=== PATIENT | female | born 1985 | race African-American/Black ===

== ENCOUNTER 2020-10-17 06:15 | Inpatient (IN) | payer BC, SELFPAY ==
[2020-10-13 11:04] LABS: BASOPHILS % (AUTO) 0.3 % (0.0-2.0); EOSINOPHILS # (AUTO) 0.2 K/uL (0.0-0.4); EOSINOPHILS % (AUTO) 3.9 % (0.0-4.0); HEMATOCRIT 36.1 % (36-48); HEMOGLOBIN 11.7 g/dL (12.0-16.0); LYMPHOCYTES # (AUTO) 1.2 K/uL (1.0-5.5); LYMPHOCYTES % (AUTO) 25.9 % (20.5-51.5); MEAN CORPUSCULAR HEMOGLOBIN 28 pg (27-31); MEAN CORPUSCULAR HGB CONC 32 % (32-36); MEAN CORPUSCULAR VOLUME 88 fL (79.0-98.0); MONOCYTES # (AUTO) 0.3 K/uL (0.0-1.0); MONOCYTES % (AUTO) 5.8 % (1.7-9.3); NEUTROPHILS % (AUTO) 64.1 % (40.0-70.0); PLATELET COUNT (AUTO) 276 K/uL (130-430); WHITE BLOOD COUNT (AUTO) 4.7 K/uL (4.8-10.8)
[2020-10-13 11:13] LABS: BILIRUBIN,URINE NEGATIVE (NEGATIVE); BLOOD, URINE NEGATIVE (NEGATIVE); CLARITY/URINE CLEAR (CLEAR); COLOR,URINE YELLOW (YELLOW); GLUCOSE,URINE NEGATIVE (NEGATIVE); KETONES,URINE NEGATIVE (NEGATIVE); LEUKOCYTE ESTERASE ,URINE NEGATIVE (NEGATIVE); NITRITE, URINE NEGATIVE (NEGATIVE); PROTEIN URINE NEGATIVE (NEGATIVE); UROBILINOGEN,URINE 0.2 (0.2-1.0)
[2020-10-13 11:15] LABS: ALBUMIN 3.9 g/dL (3.4-4.8); CALCIUM 8.9 mg/dL (8.4-11.0); CREATININE 0.79 mg/dL (0.55-1.30); POTASSIUM 4.4 mmol/L (3.5-5.1); TOTAL BILIRUBIN 0.2 mg/dL (0.0-1.0)
[2020-10-13 11:31] LABS: INR 0.9 (0.8-1.2); PROTHROMBIN TIME 9.4 SECS (9.5-12.5)
[~2020-10-17] VITALS: Ht 165.1 cm; Wt 70.3 kg
[2020-10-17 06:45] LABS: HCG,QUAL RESULT NEGATIVE (NEGATIVE)
[2020-10-17] MEDS ORDERED: CEFAZOLIN 2 GM IVPB PREMIX 50 ML IV ONE (07:00)
[2020-10-17] MEDS ORDERED: ONDANSETRON HCL 4 MG/2 ML VIAL IVP ONE (07:30)
[2020-10-17] MEDS ORDERED: MIDAZOLAM HCL 5 MG/5 ML VIAL IVP ONE (07:30)
[2020-10-17] MEDS ORDERED: MORPHINE SULFATE 10MG/10ML PF AMP EP ONE (07:30)
[2020-10-17] MEDS ORDERED: ROCURONIUM BROMIDE 10 MG/ML (ZEMURON) IV ONE (07:30)
[2020-10-17] MEDS ORDERED: OXYTOCIN 10 UNIT/ML VIAL IV ONE (07:30)
[2020-10-17] MEDS ORDERED: fentaNYL CITRATE/PF 100 MCG/2 ML AMP IVP ONE (07:30)
[2020-10-17] MEDS ORDERED: SEVOFLURANE 15 MIN GAS INH ONE (07:30)
[2020-10-17] MEDS ORDERED: NS IRRIG SOLN 1000 ML IR ONE (07:30)
[2020-10-17] MEDS ORDERED: PROPOFOL 200MG/ 20ML VIAL (DIPRIVAN) IV ONE (07:30)
[2020-10-17] MEDS ORDERED: NS 100 ML BAG IV ONE (07:30)
[2020-10-17] MEDS ORDERED: BUPIVACAINE /PF 0.75% 10 ML VIAL INJ ONE (07:30)
[2020-10-17] MEDS ORDERED: DIPHENHYDRAMINE INJ 50 MG/ML VIAL IVP PRN (09:00)
[2020-10-17] MEDS ORDERED: KETOROLAC TROMETHAMINE 60 MG/2 ML VIAL IM PRN (09:00)
[2020-10-17] MEDS ORDERED: MORPHINE SULFATE 10MG/10ML PF AMP SP SCH (09:00)
[2020-10-17] MEDS ORDERED: ONDANSETRON HCL 4 MG/2 ML VIAL IVP PRN (09:00)
[2020-10-17] MEDS ORDERED: fentaNYL CITRATE/PF 100 MCG/2 ML AMP IVP PRN ×2 (09:00)
[2020-10-17] MEDS ORDERED: NALOXONE HCL 0.4 MG/ML AMP (NARCAN) IVP PRN ×2 (09:00)
[2020-10-17] MEDS ORDERED: NALBUPHINE HCL 10 MG/ML AMP IVP PRN (09:00)
[2020-10-17] MEDS ORDERED: ZOLPIDEM TARTRATE 5 MG TABLET PO PRN ×2 (10:45)
[2020-10-17] MEDS ORDERED: CEFAZOLIN 1 GM IVPB PREMIX 50 ML IV SCH (10:45)
[2020-10-17] MEDS ORDERED: D5LR 1,000 ML IV SCH (10:45)
--- NOTE | 2020-10-17 11:00 | NUR ---
ADMISSION: RECEIVED PT POST SURGERY, A/A/OX4, DX: S/P LAPAROTOMY W/MYOMECTOMY, AFEBRILE, VSS, NO S/S OF DISTRESS, BREATH SOUNDS ARE CLEAR, BREATHING UNLABORED, SATURATING 96% ORA, IV SITE INTACT, PATENT, NO REDNESS OR SWELLING, ORIENTED TO UNIT, CALL LIGHT PLACED WITHIN REACH, WILL CONT' TO MONITOR AND ASSESS.
[2020-10-17] MEDS: CEFAZOLIN 1 GM IVPB PREMIX 50 ML IV SCH ×2 (13:53→20:41)
[2020-10-17] MEDS: ONDANSETRON HCL 4 MG/2 ML VIAL IVP PRN ×2 (13:54→18:46)
[2020-10-17] MEDS: D5LR 1,000 ML IV SCH ×2 (14:00→23:09)
--- NOTE | 2020-10-17 18:00 | NUR ---
CLOSING NOTES: PT REMAINS STABLE, NO C/O PAIN, NO DISTRESS NOTED, TOLERATING WELL, CALL LIGHT WITHIN REACH, WILL CONT' TO MONITOR AND ASSESS.
[2020-10-17 18:06] VITALS: BP_SYST 108
--- NOTE | 2020-10-17 19:10 | NUR ---
REPORT RECEIVED FROM DAY SHIFT NURSE. LOWER ABD DRESSING DRY AND INTACT. NICHOLS CATH TO GRAVITY DRAINAGE NOTED WITH YELLOWISH URINE. LOWER ABDOMINAL DRESSING DRY AND INTACT. IVF IS INFUSING WELL IN RH. Addendum: 10/17/20 at 2306 by Claudia Simental RN PT INSTRUCTED TO USE IS 10X Q 1HR WA AND PT VERBALIZED UNDERSTANDING. PT'S IS USAGE IS UP TO 1000ML.
[2020-10-17 20:00] VITALS: BP_SYST 111
--- NOTE | 2020-10-17 22:15 | NUR ---
PT AMBULATED IN THE HALLWAY WITH ONE ASSIST. GAIT SLOW, BUT STEADY AND WELL TOLERATED BY PT. NO C/O DIZZINESS, PAIN OR NAUSEA.
[2020-10-18 00:34] VITALS: BP_SYST 105
[2020-10-18] MEDS: D5LR 1,000 ML IV SCH ×4 (02:45→20:20)
[2020-10-18] MEDS ORDERED: KETOROLAC TROMETHAMINE 30 MG VIAL ONE (03:13)
--- NOTE | 2020-10-18 03:18 | NUR ---
PT C/O 7/10 LOWER ABDOMINAL INCISIONAL PAIN. TORADOL 60MG GIVEN IM.
--- NOTE | 2020-10-18 06:15 | NUR ---
NICHOLS CATHETER REMOVED PER MD'S ORDER.
[2020-10-18 06:53] LABS: BASOPHILS % (AUTO) 0.1 % (0.0-2.0); EOSINOPHILS # (AUTO) 0.1 K/uL (0.0-0.4); EOSINOPHILS % (AUTO) 0.7 % (0.0-4.0); HEMATOCRIT 23.3 % (36-48); HEMOGLOBIN 7.8 g/dL (12.0-16.0); LYMPHOCYTES # (AUTO) 1.4 K/uL (1.0-5.5); LYMPHOCYTES % (AUTO) 13.1 % (20.5-51.5); MEAN CORPUSCULAR HEMOGLOBIN 29 pg (27-31); MEAN CORPUSCULAR HGB CONC 33 % (32-36); MEAN CORPUSCULAR VOLUME 87 fL (79.0-98.0); MONOCYTES # (AUTO) 0.8 K/uL (0.0-1.0); MONOCYTES % (AUTO) 7.4 % (1.7-9.3); NEUTROPHILS # (AUTO) 8.3 K/uL (1.8-7.7); NEUTROPHILS % (AUTO) 78.7 % (40.0-70.0); PLATELET COUNT (AUTO) 220 K/uL (130-430); RED BLOOD CELL COUNT(AUTO) 2.69 MIL/uL (4.2-6.2); RED CELL DISTRIBUTION WIDTH 14.5 % (9.0-15.0); WHITE BLOOD COUNT (AUTO) 10.6 K/uL (4.8-10.8)
--- NOTE | 2020-10-18 08:00 | NUR ---
NOTES SEEN BY KASSY, DIET TO CLEAR LIQUID TOLERATED WELL. WITH LOW HEMOGLOBIN AND HEMATOCRIT TO TRANSFUSE ONE UNIT AUTOLOGOUS BLOOD. ABLE TO WALK WITHOUT ASSISTANCE. USING INCENTIVE SPIROMETER. REMOVED SCD SO PATIENT ABLE TO WALK AND INDEPENDENT DURING THE DAY.
[2020-10-18 08:45] VITALS: BP_SYST 101
--- NOTE | 2020-10-18 09:47 | NUR ---
BT INITIATION: Consent signed per PATIENT agreeing to administration of blood. Blood has been type and crossmatched. Blood sent from blood bank. Information on unit of blood checked against patient wristband at bedside by two nurses. All information matches. Patient or responsible republican informed of potential complications associated with blood transfusion. Informed of possible transfusion reaction symptoms. Aware of need to notify nurse at once of itching, shortness of breath, flushing, feeling of impending doom, or other symptoms not previously present. Vital signs taken within 5 minutes prior to initiation of transfusion. RN will remain with patient for first 15 minutes of transfusion at which time vital signs will be re-assessed. AUTOLOGOUS BLOOD TRANSFUSE TO PATIENT.
[2020-10-18] MEDS: HYDROcodone/ACETAMIN 5-325 MG TAB (NORCO/ VICODIN) PO PRN ×4 (09:54→22:56)
--- NOTE | 2020-10-18 10:00 | NUR ---
BLOOD NO REACTIONS POST 15 MINUTES OF BLOOD TRANSFUSION.
[2020-10-18 12:10] VITALS: BP_SYST 105
--- NOTE | 2020-10-18 12:14 | NUR ---
NOTES WITH ONGOING BLOOD TRANSFUSION, DENIES PAIN.
--- NOTE | 2020-10-18 13:30 | NUR ---
post blood transfusion autologous blood completed, no adverse reactions noted.
[2020-10-18 16:07] VITALS: BP_SYST 110
--- NOTE | 2020-10-18 18:32 | NUR ---
NOTES AMBULATE TO THE BATHROOM, WALK INSIDE THE ROOM, PATIENT USED HER INCENTIVE SPIROMETER.
--- NOTE | 2020-10-18 19:18 | NUR ---
OPENING NOTES RECEIVED PATIENT IN BED A/O X4. BREATHING UNLABORED ON ROOM AIR. NO C/O PAIN AT THIS TIME. IVF INFUSING ORDERED. LOWER ABDOMINAL INCISION OPEN TO AIR WITH SHARON INTACT. BED IN LOWEST LOCKED POSITION. CALL LIGHT WITH IN REACH.
[2020-10-18 20:14] VITALS: BP_SYST 103
--- NOTE | 2020-10-18 20:25 | NUR ---
IV LINE RT HAND IV LINE SWOLLEN. INSERTED NEW IV LINE TO LT HAND GAUGE #22 WITH GOOD BLOOD RETURN. OLD IV LINE REMOVED. PRESSURE DRESSING APPLIED.
--- NOTE | 2020-10-18 22:35 | NUR ---
ROUNDS PATIENT RESTING IN BED EYES CLOSED. BREATHING UNLABORED. IVF INFUSING ORDERED.
--- NOTE | 2020-10-18 22:56 | NUR ---
PAIN MGT PATIENT MEDICATED WITH NORCO FOR C/O ABDOMINAL PAIN 01/20. VITAL SIGNS STABLE. ASSISTED PATIENT WITH BATHROOM USE. PROVIDED WITH ABDOMINAL BINDER. LINENS CHANGED. SCD'S REAPPLIED INSTRUCTED PATIENT HOW TO REMOVE WHEN NEED TO GET OUT OF BED. REMINDED PATIENT TO ALWAYS CALL FOR HELP/USE CALL LIGHT WHEN NEED TO GET UP FOR HER SAFETY. PATIENT VERBALIZES UNDERSTANDING. CALL LIGHT WITH IN EASY REACH.
[2020-10-18 23:19] VITALS: BP_SYST 104
--- NOTE | 2020-10-19 01:15 | NUR ---
ROUNDS PATIENT IN BED EYES CLOSED. NO DISTRESS NOTED. IVF INFUSING.
--- NOTE | 2020-10-19 02:00 | NUR ---
ROUNDS PATIENT WITH INTERMITTENT SNORING. NO DISTRESS NOTED.
--- NOTE | 2020-10-19 03:03 | NUR ---
ROUNDS PATIENT EYES CLOSED. BREATHING UNLABORED. BED ALARM ON.
[2020-10-19] MEDS: D5LR 1,000 ML IV SCH (03:28)
[2020-10-19 03:33] VITALS: BP_SYST 114
[2020-10-19] MEDS: HYDROcodone/ACETAMIN 5-325 MG TAB (NORCO/ VICODIN) PO PRN ×3 (03:38→12:33)
--- NOTE | 2020-10-19 03:38 | NUR ---
PAIN MGT PATIENT MEDICATED WITH NORCO FOR C/O ABDOMINAL PAIN 11/20. VITAL SIGNS STABLE. ASSISTED PATIENT OUT OF BED AND BACK TO BED.
--- NOTE | 2020-10-19 04:20 | NUR ---
ENDORSEMENT PATIENT CARE ENDORSED TO CHRIS PICKETT.
--- NOTE | 2020-10-19 04:25 | NUR ---
ASSUMPTION OF CARE PATIENT ASLEEP, NO SOB NOTED, RESPIRATIONS EVEN AND UNLABORED, WILL CONTINUE TO MONITOR.
--- NOTE | 2020-10-19 06:23 | NUR ---
CLOSING NOTES PATIENT AWAKE, NO COMPLAINTS AT THIS TIME, VITALS STABLE. ALL NEEDS ATTENDED TO. SAFETY MEASURES MAINTAINED. CALL LIGHT PLACED WITHIN REACH.
[2020-10-19 07:16] LABS: BASOPHILS % (AUTO) 0.2 % (0.0-2.0); EOSINOPHILS # (AUTO) 0.3 K/uL (0.0-0.4); EOSINOPHILS % (AUTO) 3.6 % (0.0-4.0); HEMATOCRIT 26.2 % (36-48); HEMOGLOBIN 8.5 g/dL (12.0-16.0); LYMPHOCYTES # (AUTO) 1.5 K/uL (1.0-5.5); LYMPHOCYTES % (AUTO) 19.1 % (20.5-51.5); MEAN CORPUSCULAR HEMOGLOBIN 28 pg (27-31); MEAN CORPUSCULAR HGB CONC 32 % (32-36); MEAN CORPUSCULAR VOLUME 87 fL (79.0-98.0); MONOCYTES # (AUTO) 0.7 K/uL (0.0-1.0); MONOCYTES % (AUTO) 8.3 % (1.7-9.3); NEUTROPHILS # (AUTO) 5.5 K/uL (1.8-7.7); NEUTROPHILS % (AUTO) 68.8 % (40.0-70.0); PLATELET COUNT (AUTO) 209 K/uL (130-430); RED CELL DISTRIBUTION WIDTH 14.5 % (9.0-15.0)
--- NOTE | 2020-10-19 07:35 | NUR ---
OPENING NOTE Patient resting in the bed. No acute distress. Skin warm and dry to touch. IV intact to left hand, no redness, no swelling, no drainage. On D5LR at 125ml/hr, infusing well. Lower abd incision intact with yoshi, no drainage, no bleeding noted. Abd blinder in placed. Safety measure maintained. Call light within reached. Bed locked in low position, side rails up. Will continue to monitor.
[2020-10-19 07:55] VITALS: BP_SYST 113
--- NOTE | 2020-10-19 07:58 | NUR ---
SEEN AND EXAMINED BY SIMRAN SIERRA WITH ORDER RECEIVED.
--- NOTE | 2020-10-19 08:34 | NUR ---
NORCO GIVEN Patient c/o lower abd incision site pain 4/10 after ambulating to bathroom. No acute distress. [place] 5/325mg 1 tab given as ordered. Safety measure maintained. Call light within reached. Bed locked in low position, side rails up. Refused bed alarm, risk and benefit explained, verbally understanding. Continue to monitor.
--- NOTE | 2020-10-19 09:52 | NUR ---
SEEN AND EXAMINED BY ROBY ARMSTRONG WITH ORDER OKAY TO DISCHARGE PATIENT.
--- NOTE | 2020-10-19 12:34 | NUR ---
NORCO GIVEN Patient c/o lower abd incision site pain 6/10 after ambulating to bathroom. No acute distress. [place] 5/325mg 1 tab given as ordered. Safety measure maintained. Call light within reached. Bed locked in low position, side rails up. Continue to monitor.
[2020-10-19 13:15] VITALS: BP_SYST 117
[2020-10-19 14:07] VITALS: BP_SYST 117
[2020-10-19] MEDS ORDERED: HYDR-3919 PO (14:26)
--- NOTE | 2020-10-19 15:15 | NUR ---
D/C Patient Patient given medication reconciliation form and D/C instructions. Exit Care provided. Patient verbalized understanding. MD discussed with patient the results and treatment provided. Ambulatory with steady gait for discharge to home. Patient in stable condition, ID band removed. IV catheter removed, intact and dressing applied, no active bleeding. Rx of [place] given. Patient educated on pain management. All belongings sent with patient.
== END 2020-10-19 15:15 | disposition home or self-care (01) | DRG 743 ==
LOC: SMU 06:15 → SDS 06:15 → STU 10:47 → SMU 10:56 → STU 18:00 → SDS 10-18 06:37 → STU 10-18 06:37 → SMU 10-19 08:18
PROVIDERS: ADMIT Obstetrics & Gynecology Gynecology; ATTEND Obstetrics & Gynecology Gynecology
PROC: 0U590ZZ Destruction of Uterus, Open Approach (ICD-10-PCS; 2020-10-17)
PROC: 30233N1 Transfusion of Nonautologous Red Blood Cells into Peripheral Vein, Percutaneous Approach (ICD-10-PCS; principal; 2020-10-18)
DX: D25.1 Intramural leiomyoma of uterus (principal); G43.909 Migraine, unspecified, not intractable, without status migrainosus; Z20.822 Contact with and (suspected) exposure to COVID-19; D25.2 Subserosal leiomyoma of uterus; Z82.49 Family history of ischemic heart disease and other diseases of the circulatory system; Z83.3 Family history of diabetes mellitus
CPT/HCPCS: 36415; 80053; 81003; 84703; 85025; 85610-TC; 85730-TC; 86886; 86890; 86900; 86901; 86920; 87081; 87086; 88305; G0378; J0690; J1885; J2250; J2274; J2405; J2590; J2704; J3010; J3490; J7050; J7120; U0003

== ENCOUNTER 2023-12-09 06:06 | Day surgery (SDC) | payer BC ==
[2023-12-05 10:39] LABS: BILIRUBIN,URINE NEGATIVE (NEGATIVE); BLOOD, URINE NEGATIVE (NEGATIVE); COLOR,URINE YELLOW (YELLOW); GLUCOSE,URINE NEGATIVE (NEGATIVE); KETONES,URINE NEGATIVE (NEGATIVE); LEUKOCYTE ESTERASE ,URINE NEGATIVE (NEGATIVE); NITRITE, URINE NEGATIVE (NEGATIVE); PH,URINE 7.5 (5.0-8.0); PROTEIN URINE NEGATIVE (NEGATIVE); UROBILINOGEN,URINE 0.2 (0.2-1.0)
[2023-12-05 10:40] LABS: EOSINOPHILS # (AUTO) 0.2 K/uL (0.0-0.4); EOSINOPHILS % (AUTO) 5.9 % (0.0-4.0); HEMATOCRIT 39.8 % (36-48); HEMOGLOBIN 13.6 g/dL (12.0-16.0); LYMPHOCYTES # (AUTO) 1.4 K/uL (1.0-5.5); LYMPHOCYTES % (AUTO) 36.8 % (20.5-51.5); MEAN CORPUSCULAR HEMOGLOBIN 30 pg (27-31); MEAN CORPUSCULAR HGB CONC 34 % (32-36); MEAN CORPUSCULAR VOLUME 86 fL (79.0-98.0); MONOCYTES # (AUTO) 0.2 K/uL (0.0-1.0); NEUTROPHILS % (AUTO) 51.3 % (40.0-70.0); PLATELET COUNT (AUTO) 397 K/uL (130-430); RED BLOOD CELL COUNT(AUTO) 4.61 MIL/uL (4.2-6.2); RED CELL DISTRIBUTION WIDTH 14.5 % (9.0-15.0); WHITE BLOOD COUNT (AUTO) 3.8 K/uL (4.8-10.8)
[2023-12-05 10:46] LABS: CLARITY/URINE SLIGHTLY HAZY (CLEAR); HCG,QUAL RESULT NEGATIVE (NEGATIVE)
[2023-12-05 10:52] LABS: INR 1.1 (0.8-1.2)
[2023-12-05 10:57] LABS: CALCIUM 8.3 mg/dL (8.4-11.0); CREATININE 0.81 mg/dL (0.55-1.30); POTASSIUM 3.7 mmol/L (3.5-5.1); TOTAL BILIRUBIN 0.5 mg/dL (0.0-1.0); TOTAL PROTEIN, SERUM 7.9 g/dL (6.4-8.3)
[~2023-12-09] VITALS: Ht 165.1 cm; Wt 82.6 kg
[~2023-12-09 06:06] MED LIST: HYDR-3919 PO
[2023-12-09 06:47] LABS: HCG,QUAL RESULT NEGATIVE (NEGATIVE)
[2023-12-09] MEDS ORDERED: BENZOCAINE 20% 0.5mL UD SPRAY MM ONE (07:50)
[2023-12-09] MEDS ORDERED: DEXAMETHASONE SOD PHOSPHATE 4 MG/ML VIAL ONE (08:35)
[2023-12-09] MEDS ORDERED: fentaNYL CITRATE/PF 100 MCG/2 ML AMP ONE (08:35)
[2023-12-09 08:55] VITALS: O2SAT 100
[2023-12-09] MEDS ORDERED: HYDROcodone/ACETAMIN 5-325 MG TAB (NORCO/ VICODIN) PO PRN ×2 (10:00)
[2023-12-09] MEDS: HYDROmorphone 2 MG/ML VIAL ONE (10:00)
[2023-12-09] MEDS ORDERED: IBUPROFEN 600 MG TABLET PO ONE (10:00)
[2023-12-09] MEDS ORDERED: KETOROLAC TROMETHAMINE 30 MG VIAL IVP PRN (10:00)
[2023-12-09] MEDS ORDERED: HYDROmorphone 1 MG/ML INJ. CARTRIDGE IVP PRN (10:00)
[2023-12-09] MEDS ORDERED: METOCLOPRAMIDE HCL 10 MG/2 ML VIAL IVP PRN (10:00)
[2023-12-09] MEDS ORDERED: ACETAMINOPHEN I.V. 1000 MG 100 ML IV ONE (10:00)
[2023-12-09] MEDS ORDERED: ONDANSETRON HCL 4 MG/2 ML VIAL IVP PRN ×2 (10:00)
[2023-12-09 12:26] VITALS: BP_SYST 115; PULSE 83; RESP 20
== END 2023-12-09 11:58 | disposition home or self-care (01) ==
LOC: SDS 06:06 → SMU 06:08 → SDS 11:58
PROVIDERS: ATTEND Obstetrics & Gynecology Gynecology
DX: N92.0 Excessive and frequent menstruation with regular cycle (principal); N85.8 Other specified noninflammatory disorders of uterus; N94.6 Dysmenorrhea, unspecified; D50.9 Iron deficiency anemia, unspecified; D25.0 Submucous leiomyoma of uterus; I51.7 Cardiomegaly; Z98.890 Other specified postprocedural states; Z86.711 Personal history of pulmonary embolism; Z79.899 Other long term (current) drug therapy
CPT/HCPCS: 80053; 81001; 84703 ×2; 85025; 85610; 85730; 86886; 86900; 86901; 87081; 87086; 36415; 93005; 71046; 81003; 58561; 88305; J1100; J3465; J2370; J2704; J3010; J1170; J7120; J7030; C1819; J0131